=== PATIENT | male | born 1975 | race Caucasian/White ===

== ENCOUNTER 2017-02-05 21:23 | Emergency (ER) | payer OTHER | END 2017-02-05 23:33 | disposition home or self-care (01) | LOC: FER 21:23 | DX: S60.571A Other superficial bite of hand of right hand, initial encounter (principal); F41.9 Anxiety disorder, unspecified; F32.9 Major depressive disorder, single episode, unspecified; Z23 Encounter for immunization; Z79.899 Other long term (current) drug therapy; W54.0XXA Bitten by dog, initial encounter; Y92.410 Unspecified street and highway as the place of occurrence of the external cause | CPT/HCPCS: 73130; 90375; 90471; 90715 ==